=== PATIENT | female | born 1940 | race Caucasian/White ===

== ENCOUNTER → 2024-08-05 09:16 | Outpatient (REF) | payer MEDICARE, BC, SELFPAY ==
[2024-08-05 10:17] LABS: % Eosinophils 3.1 % (0-6); % Immature Granulocytes 0.3 % (0-0.5); % Lymphocytes 24.9 % (20.5-51.1); % Monocytes 6.6 % (1.7-9.3); % Neutrophils 64.1 % (42.2-75.2); Absolute Basophils 0.1 10^3/uL (0-0.2); Absolute Eosinophils 0.2 10^3/uL (0-0.7); Absolute Lymphocytes 1.8 10^3/uL (1.2-3.4); Absolute Monocytes 0.5 10^3/uL (0.1-0.6); Absolute Neutrophils 4.6 10^3/uL (1.4-6.5); Hematocrit 41.6 % (37.0-47.0); Hemoglobin 14.2 g/dL (12.0-16.0); Mean Corp Hgb Conc. 34.1 g/dL (33.0-37.0); Mean Corpuscular Hgb 30.9 pg (27.0-31.0); Mean Corpuscular Volume 90.6 fL (81.0-99.0); Mean Platelet Volume 8.9 fL (7.4-10.4); Nucleated Red Blood Cells % 0 %; Platelet Count 310 10^3/uL (130-400); Red Blood Cell Count 4.59 10^6/uL (4.20-5.40); Red Cell Dist. Width 13.5 % (11.5-14.5); White Blood Cell Count 7.1 10^3/uL (4.8-10.8)
[2024-08-05 10:35] LABS: Urine Albumin Negative (Neg - Trace); Urine Bilirubin Negative (Negative); Urine Character Clear (Clear); Urine Color Yellow; Urine Glucose Negative (Negative); Urine Ketone Negative (Negative); Urine Leukocyte Negative (Negative); Urine Nitrite Negative (Negative); Urine Occult Blood 1+ (Negative); Urine Urobilinogen Negative (Neg - 1+)
[2024-08-05 11:19] LABS: Vitamin D, 25-OH*** 24.7 ng/mL (30-80)
[2024-08-05 11:21] LABS: Urine Squamous Cell >30 /LPF (Few)
[2024-08-05 11:22] LABS: Urine Bacteria Few (Negative); Urine Red Blood Cell None Seen /HPF (0-2)
[2024-08-05 12:14] LABS: ALT (SGPT) 19 U/L (0-35); AST (SGOT) 30 U/L (14-36); Albumin 4.9 g/dl (3.5-5.0); Alkaline Phosphatase 95 U/L (38-126); Blood Urea Nitrogen 17 mg/dl (7-17); Calcium 9.8 mg/dl (8.4-10.2); Carbon Dioxide 23 mmol/L (22-30); Chloride 102 mmol/L (98-107); Glucose 101 mg/dl (70-99); Potassium 4.7 mmol/L (3.5-5.1); Sodium 137 mmol/L (135-145); Total Bilirubin 0.7 mg/dl (0.2-1.3); Total Cholesterol 246 mg/dl (50-199); Total Protein 7.5 g/dl (6.3-8.2); Triglyceride 110 mg/dl (10-149); Very Low Density Lipoprotein 22 mg/dl (0-30); eGFR > 60.00
[2024-08-05 13:32] LABS: HDL Cholesterol 131 mg/dl; LDL Cholesterol, Calculated 93 mg/dl
== END ==
LOC: REG 09:16
PROVIDERS: ATTENDING PHYSICIAN Internal Medicine Geriatric Medicine
DX: Z00.00 Encounter for general adult medical examination without abnormal findings (principal); I10 Essential (primary) hypertension; E78.2 Mixed hyperlipidemia; E78.00 Pure hypercholesterolemia, unspecified; R00.1 Bradycardia, unspecified; Z79.899 Other long term (current) drug therapy
CPT/HCPCS: 36415; 80053; 80061; 81003; 81015; 82306; 85025

== ENCOUNTER 2024-09-13 23:37 | Observation (INO) | payer MEDICARE, BC, SELFPAY ==
[2024-09-13 19:35] VITALS: BP 160/98
--- NOTE | 2024-09-13 19:42 | ED.CVA ---
History of Present Illness
General
Chief Complaint: CVA/TIA Symptoms
Source: patient
Time Seen by Provider: 09/13/24 19:26
Onset of Stroke Symptoms
Onset of symptoms known: Yes
Date of onset of symptoms: 09/11/24
Time of onset of symptoms: 08:00
History of Present Illness
History of Present Illness:
84-year-old female presents to the emergency room for evaluation of slurred speech. Patient states that she began having slurred speech 2 days ago. She noted when she woke up from sleep. She denies any other areas of focal weakness numbness or
tingling. She has been ambulating normally. She does not need the help of a walker or cane. She has been doing her normal activities of daily living. 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 Patient denies any headache. Patient has a
history of ocular migraines which cause her to have visual field deficit and headache. She had 1 of these about a week ago but symptoms completely resolved. Initially the patient thought her slurred speech might be due to her bridge however there
has been no change in her bridge between when she was speaking normally when she developed a slurred speech
Past History
Past History
ED Past Medical History: CAD, HTN and Hypercholesterolemia
ED Past Surgical History: Gynecological and Other (Rectocele/, partial hysterectomy, Mohs surgery, cataracts)
Social History
Tobacco: Former smoker
Alcohol: None
Drug: None
Living: with family
Employment: Retired
Family History
Family History: Hypertension
Phy Exam
Physical Exam
Physical Exam:
General: Awake, Alert, Oriented X3. No acute distress.
Vitals: Moderate hypertension
Head: Atraumatic
Eyes: Pupils equal, EOMI
Throat: Airway intact, no exudates
Neck: Trachea midline
Lungs: Clear and equal b/l
Heart: Regular rate, no murmurs
Abd: Soft, Nontender, No pulsatile mass
Neuro: Mildly slurred speech, no aphasia, muscle strength equal bilaterally, sensation intact cerebellar exam normal
Skin: Warm, dry, no rash
Extremities: pulses equal b/l, no edema
Course
Orders/Labs/Results
Orders:
Orders
09/13/24 19:07
EKG [Electrocardiogram (*1)] Urgent
Reason for Study: Tachycardia
EKG- Treatment ONCE
09/13/24 19:41
CT Head W/o Iv Contrast Urgent
Comment:
Reason For Exam: dysarthria
Cardiac Monitoring- Treatment ONCE
09/13/24 20:02
Alcohol Urgent
Basic Metabolic Panel Urgent
Complete Blood Count/With Diff Urgent
09/13/24 22:18
Aspirin Chewable [Low Strength Aspirin] 324 mg PO NOW STA
Abnormal Lab Results
09/13/24
20:02
Glucose 131 H mg/dl
(70-99)
09/13/24 20:02
09/13/24 20:02
Vital Signs
Initial and Last Documented VS:
Initial Vital Signs
Temp Pulse Resp Pulse Ox
98.7 F 153 17 98
09/13/24 19:07 09/13/24 19:07 09/13/24 19:07 09/13/24 19:07
Last Documented Vital Signs
Temp Pulse Resp BP Pulse Ox
98.7 F 85 20 167/92 94
09/13/24 19:07 09/13/24 20:45 09/13/24 20:45 09/13/24 20:00 09/13/24 20:45
MDM/Problems Addressed
Differential Diagnosis Includes:
CVA, mass, electrolyte abnormality such as hyponatremia, intoxication
MDM/Problems Addressed:
Patient presents with slurred speech. I do not find any other significant neurologic findings. However her speech is quite slurred. Suspect CVA. CT does not show anything acute at this time. Labs are all pretty unremarkable. Recommend
hospitalization for further evaluation and MRI to confirm stroke and if present for other stroke workup.
*Radiology
Radiology exam reviewed: radiology read reviewed
*Pulse Oximetry
Patient hypoxic: no
*EKG
Interpreted by ED Provider?: Yes
Heart Rate: 94
Rate: normal
Rhythm: sinus
[place]: normal axis
Interval: first degree heart block
QRS Pattern: left vent hypertrophy
Ischemia: no ischemia
*Water Filterer Interpretation
Rate: normal
Interpretation: normal
Rhythm: sinus
*Critical Care Note
Total Time (30-74mins, 75-104mins- exclusive of procedures): Not Applicable
ED Attending Note
-
Portions of this chart may have been created with voice recognition software.� Occasional wrong word or��sound alike� substitutions may have occurred due to the inherent limitations of voice recognition software.
Discharge Plan
Departure
Patient Disposition: Admit
Date of Disposition: 09/13/24
Time of Disposition: 22:19
Admit to: Telemetry
Presentation/result/management discussed w/ accepting MD/DO: Hospitalist
Condition: Fair
Discharge Problem:
Slurred speech, Acute CVA (cerebrovascular accident)
Prescriptions:
No Action
coenzyme Q10 100 MG capsule
100 mg PO DAILY
rosuvastatin 5 MG tablet
5 mg PO QPM
cholecalciferol (vitamin D3) 1,000 UNITS tablet
1,000 units PO DAILY
amlodipine 10 MG tablet
10 mg PO DAILY Qty: 30 1RF
valsartan 80 MG tablet
320 mg PO QPM Qty: 120 0RF
Referrals:
Dong Flood MD [Family Provider] -
Interventions
Interventions:
*Risk Screen - Suicide Last Done: 09/13/24 20:28
*General Assessment Last Done: 09/13/24 19:07
*Neglect/Abuse Screening Last Done: 09/13/24 19:07
*ED- Fall Risk Assessment Last Done: 09/13/24 20:28
*ED COVID-19 Vaccine History Last Done: 09/13/24 20:28
ED- Pulmonary Assessment Last Done: 09/13/24 20:28
ED- Neurological Assessment Last Done: 09/13/24 20:28
ED- Cardiac Assessment Last Done: 09/13/24 20:28
Discharge Date and Time
Print Language: BELARUSIAN
[2024-09-13 20:00] VITALS: BP 167/92
[2024-09-13 20:09] LABS: % Basophils 1.5 % (0-2); % Eosinophils 1.5 % (0-6); % Immature Granulocytes 0.4 % (0-0.5); % Lymphocytes 26.8 % (20.5-51.1); % Monocytes 7.8 % (1.7-9.3); Absolute Basophils 0.1 10^3/uL (0-0.2); Absolute Eosinophils 0.1 10^3/uL (0-0.7); Absolute Monocytes 0.6 10^3/uL (0.1-0.6); Absolute Neutrophils 4.6 10^3/uL (1.4-6.5); Hematocrit 40.8 % (37.0-47.0); Hemoglobin 13.8 g/dL (12.0-16.0); Mean Corp Hgb Conc. 33.8 g/dL (33.0-37.0); Mean Corpuscular Hgb 30.6 pg (27.0-31.0); Mean Corpuscular Volume 90.5 fL (81.0-99.0); Mean Platelet Volume 8.7 fL (7.4-10.4); Nucleated Red Blood Cells % 0 %; Platelet Count 299 10^3/uL (130-400); Red Blood Cell Count 4.51 10^6/uL (4.20-5.40); Red Cell Dist. Width 13.5 % (11.5-14.5); White Blood Cell Count 7.4 10^3/uL (4.8-10.8)
[2024-09-13 20:28] VITALS: BMI 28.8
[2024-09-13 20:30] LABS: Blood Urea Nitrogen 17 mg/dl (7-17); Calcium 9.6 mg/dl (8.4-10.2); Carbon Dioxide 24 mmol/L (22-30); Chloride 107 mmol/L (98-107); Glucose 131 mg/dl (70-99); Potassium 3.7 mmol/L (3.5-5.1); Sodium 139 mmol/L (135-145); eGFR > 60.00
[2024-09-13 20:33] LABS: Alcohol None Detected
--- NOTE | 2024-09-13 22:51 | HPS.HSE ---
Family Physician
-
Family Physician: Dong Flood
Chief Complaint
-
Slurred speech
History of Present Illness
This is a 84-year-old female with past medical history significant for hypertension, hyperlipidemia, 4 degree AV block, prior carotid artery disease without any intervention will presents to the emergency department with 2 days of slurred speech.
Patient reports sudden onset of slurred speech. She stated that she initially thought that this was due to the breach that she had on her feet. However when she spoke to family on the phone they could not understand that clearly. Spouse was also
having some difficulty hearing and understanding. She said that she also felt like it was not due to or bridge anymore due to the persistent lack of understanding by others and she felt that her speech was not perfectly normal. Having not had a
prior to this her speech was clear and understandable to me without any significant evidence of slurring. She denies any other symptoms. She denies any observed facial asymmetry. She denies any numbness or tingling. She denies any blurry vision
or double vision or acute vision loss. Patient denies any prior history of CVA. She does report history of ocular migraines with last episode about 1 week ago.
She stated that in the past she was on aspirin but she discontinued because she had no prior risk factors.
In the emergency department she was afebrile, blood pressure was 167/90 with a pulse of 85 and she was satting 94% on room air.
CBC was unremarkable electrolytes BUN/creatinine were normal.
CT of the head was negative. CBC was unremarkable. Electrolytes BUN and creatinine were normal.
Medical History
Past Medical History
Past Medical History: Reports Arrhythmia (History of SVT, first degree AV block), CAD, HTN and Hypercholesterolemia
Past Surgical History: Reports Gynocological (Hysterectomy) and Tonsilectomy
Social History
Tobacco: Non-smoker
Alcohol: None
Drug: None
Personal:
Living: With Family
Family History
Family History: Not pertinent
Allergies / Home Medications
Allergies reflects when Allergies were last updated in [employer].
Home Medications with original date entered in [employer]
Allergy/Medication List:
Allergies
Allergy/AdvReac Type Severity Reaction Status Date / Time
azithromycin Allergy diarrhea Verified 09/07/21 18:57
[From Zithromax Z-Janak]
erythromycin base Allergy diarrhea Verified 09/07/21 18:57
Home Medications
coenzyme Q10 100 mg capsule 100 mg PO DAILY Stroke 03/27/12
rosuvastatin 5 mg tablet 5 mg PO QPM High cholesterol 03/27/12
cholecalciferol (vitamin D3) 25 mcg (1,000 unit) tablet 1,000 units PO DAILY Supplement 02/25/21
amlodipine 2.5 mg tablet 2.5 mg PO DAILY #30 tabs 02/26/21
valsartan 80 mg tablet 320 mg (4 x 80 mg) PO QPM #120 tabs 02/26/21
Review of Systems
-
History Source: Patient
Constitutional: Reports No Symptoms
EENT: Reports No Symptoms
Respiratory: Reports No Symptoms
Cardiac: Reports No Symptoms
Abdomen/GI: Reports No Symptoms
: Reports No Symptoms
Musculoskeletal: Reports No Symptoms
Skin: Reports No Symptoms
Neurological: Reports Other (slurred speech)
Endocrine: Reports No Symptoms
Hematologic/Lymphatic: Reports No Symptoms
Psych: Reports No Symptoms
Physical Exam
Vital Signs
Vital Signs
Temp Pulse Resp BP Pulse Ox
98.7 F 85 20 167/92 94
09/13/24 19:07 09/13/24 20:45 09/13/24 20:45 09/13/24 20:00 09/13/24 20:45
Physical Exam
General: Well Developed, Well Nourished and No Apparent Distress
HEENT: NormoCephalic, Moist mucous membranes and Atraumatic
Respiratory: Clear
Cardiac: S1/S2 and Regular Rhythm; No Murmur or Rub
GI: Soft, Non Tender, Non Distended and Normal Bowel Sounds; No Organomegaly
Rectal: Deferred by Provider
Musculoskeletal: No Clubbing, No Cyanosis and No Edema
Skin: No Rash
Neuro: AO x 3 and Nonfocal/grossly intact
Laboratory Results
-
09/13/24 20:02
09/13/24 20:02
Data Reviewed
-
CT Scan: Report Reviewed by me
Lab Data: Labs Reviewed by me
Old Records: Reviewed
Impression/Plan
-
IMPRESSION:
This is a very pleasant 84-year-old female with history of hypertension who presents emergency department with 2 days of slurred speech. Very subtle deficit on my examination. Patient does feel that her speech is not normal. She has not no other
focal deficits. NIHSS currently equals 0. History of carotid artery disease in the past. CT of the head is negative.
PLAN:
CVA/TIA vs mechanical speech impediment
- admit to telemetry observation
- speech/swallow evaluation
- check lipid panel, a1c and esr
- start aspirin now, continue statin
- continue bp meds
- mri in am, carotid u/s
- dvt ppx with scd
- neuro consult
Code status - DNR
[2024-09-13] MEDS: LOW STRENGTH ASPIRIN 324 MG PO (23:18)
[2024-09-14] VITALS (8 sets, daily range): BP systolic 123–175; BP diastolic 70–89; BMI 27.6
[2024-09-14] MEDS: TYLENOL 650 MG PO (00:45)
--- NOTE | 2024-09-14 01:17 | PTCARENOTE ---
Patient received from ED via stretcher. She ambulated Independently to room. She was oriented to room and surroundings. NIH 1 for mild dysarthria HRR, NSR with first degree AV Block on tele, BS CTA b/l. +void in bathroom. C/o posterior
headache 2/10 Tylenol per prn order. See nursing assessment for further physical findings.
[2024-09-14 06:30] LABS: HDL Cholesterol 100 mg/dl; LDL Cholesterol, Calculated 74 mg/dl; Total Cholesterol 189 mg/dl (50-199); Triglyceride 78 mg/dl (10-149); Very Low Density Lipoprotein 15 mg/dl (0-30)
[2024-09-14] MEDS: LOW STRENGTH ASPIRIN 81 MG PO (08:35)
[2024-09-14] MEDS: NORVASC 2.5 MG PO (08:35)
[2024-09-14] MEDS: FLUSH (NSS) 1 FLUSH IV (08:35)
[2024-09-14 09:17] LABS: Erythrocyte Sed Rate 11 mm/hour (0-20)
--- NOTE | 2024-09-14 10:35 | PTOTSP ---
Speech Pathology
Clinical Swallow Evaluation
84F with admission for CVA workup presents with a functional oropharyngeal swallow. No overt s/s of aspiration observed this date. Aspiration risk is increased 2/2 dysarthric speech. MRI pending.
Recommend:
1. Continue with regular textures (IDDSI 7), thin liquids (IDDSI 0)
2. Meds as best tolerated
3. Aspiration precautions small bites; single sips; slow rate
4. Speech pathology to follow up re: to re-assess swallowing if MRI is positive; provide tx at the acute care level concerning dysarthria
5. If speech difficulties persist, patient would likely be a good candidate for outpatient speech therapy to treat dysarthria
--- NOTE | 2024-09-14 12:47 | W.PN.HOSP.TC ---
Today's Communication/Plan
-
Follow-up carotid ultrasound, MRI
Neurology consult
Increase statin
Assessment / Plan
Assessment / Plan
Physical Exam
General: Well Developed, Well Nourished and No Apparent Distress
HEENT: NormoCephalic, Moist mucous membranes and Atraumatic
Respiratory: Clear
Cardiac: S1/S2 and Regular Rhythm; No Murmur or Rub
GI: Soft, Non Tender, Non Distended and Normal Bowel Sounds; No Organomegaly
Rectal: Deferred by Provider
Musculoskeletal: No Clubbing, No Cyanosis and No Edema
Skin: No Rash
Neuro: AO x 3 and Nonfocal/grossly intact
This is a very pleasant 84-year-old female with history of hypertension who presents emergency department with 2 days of slurred speech. Very subtle deficit on my examination. Patient does feel that her speech is not normal. She has not no other
focal deficits. NIHSS currently equals 0. History of carotid artery disease in the past. CT of the head is negative.
PLAN:
CVA/TIA vs mechanical speech impediment
- admit to telemetry observation
- speech/swallow evaluation - no obvious aspiration
-LDL 74 - increase statin therapy
- start aspirin now, continue statin
-f/u a1c
- hold bp meds
- f/u mri and carotid u/s
- dvt ppx with scd
- neuro consult
#HTN
-hold antihypertensives for now
# Hyperlipidemia
� Statin
Code status - DNR
Anticipated Discharge: 24 - 48 hours
Subjective/Interval History
-
Date of Service: September 14, 2024
No acute events overnight
Objective Data
-
Vital Signs:
Vital Signs
Temp Pulse Resp BP Pulse Ox
98.2 F 77 18 154/82 98
09/14/24 11:27 09/14/24 11:27 09/14/24 11:27 09/14/24 11:27 09/14/24 11:27
Review of Systems
-
History Source: Patient
All other systems: Not reviewed unless documented
Data Reviewed
-
CT Scan: Report Reviewed by me
Labs: Labs Reviewed by me
--- NOTE | 2024-09-14 15:38 | CON.NEURO ---
Neuro Assessment/Plan
Assessment
brain MRI imgs rev'd, no acute stroke, there is chronic stroke small band L lentiform/internal capsule
carotid u/s from 2018 showing moderate right carotid stenosis 50-69%
patient with mild aphasia, no focal/lateralizing symptoms/deficits
certainly TIA or stroke too small to see is possible; secondary prevention would be asa 81 and increase rosuvastatin 10 mg given advanced age, HDL 100, LDL 74 almost at goal
discussed repeat imaging on her known right carotid stenosis - she would not consider elective intervention on an asymptomatic carotid if the stenosis were now severe so no need for imaging
Plan
asa 81, rosuvastatin 10
d/c home
Consultation
Order
Date of Consultation: 09/14/24
Requesting Provider: Patric Wagner
Reason for Consult: slurred speech
Subjective/Objective
Subjective Data
Date of Service: September 14, 2024
from h&p:
This is a 84-year-old female with past medical history significant for hypertension, hyperlipidemia, 4 degree AV block, prior carotid artery disease without any intervention will presents to the emergency department with 2 days of slurred speech.
Patient reports sudden onset of slurred speech. She stated that she initially thought that this was due to the breach that she had on her feet. However when she spoke to family on the phone they could not understand that clearly. Spouse was also
having some difficulty hearing and understanding. She said that she also felt like it was not due to or bridge anymore due to the persistent lack of understanding by others and she felt that her speech was not perfectly normal. Having not had a
prior to this her speech was clear and understandable to me without any significant evidence of slurring. She denies any other symptoms. She denies any observed facial asymmetry. She denies any numbness or tingling. She denies any blurry vision
or double vision or acute vision loss. Patient denies any prior history of CVA. She does report history of ocular migraines with last episode about 1 week ago.
She stated that in the past she was on aspirin but she discontinued because she had no prior risk factors.
In the emergency department she was afebrile, blood pressure was 167/90 with a pulse of 85 and she was satting 94% on room air.
Seen this afternoon, she is still having some mild slurred speech. she dies facial droop, focal weakness, or numbness
Objective Data
Vital Signs
Temp Pulse Resp BP Pulse Ox
36.8 C 77 18 154/82 98
09/14/24 11:27 09/14/24 11:27 09/14/24 11:27 09/14/24 11:27 09/14/24 11:27
Lab Results
09/13/24 20:02
09/13/24 20:02
Sodium 139 mmol/L (135-145) 09/13/24 20:02
Potassium 3.7 mmol/L (3.5-5.1) 09/13/24 20:02
BUN 17 mg/dl (7-17) 09/13/24 20:02
Glucose 131 mg/dl (70-99) H 09/13/24 20:02
Calcium 9.6 mg/dl (8.4-10.2) 09/13/24 20:02
LDL Cholesterol, Calc 74 mg/dl 09/14/24 05:48
Patient Allergies
azithromycin [From Zithromax Z-Janak] Allergy (Verified 09/07/21 18:57)
diarrhea
erythromycin base Allergy (Verified 09/07/21 18:57)
diarrhea
Physical Exam
-
AAOx3, trace dysarthria, language intact
VFF, EOMI, face symmetric,
full strength b/l UE/LE no drift
sensation intact to touch/pin,
FNF mild dystal dysmetria
Medications
-
Active Medications
Generic Name Dose Route Start Last Admin
Trade Name Freq PRN Reason Stop Dose Admin
Acetaminophen 650 mg 09/14/24 00:07
Acetaminophen 650 Mg Rectal Suppository RECTAL 10/12/24 00:06
Q4HPRN PRN
GRAHAM, mild pain, or temp >100.4F
Acetaminophen 650 mg 09/14/24 00:07 09/14/24 00:45
Acetaminophen 325 Mg Tablet PO 10/12/24 00:06 650 mg
Q4HPRN PRN Administration
GRAHAM, mild pain, or temp >100.4F
Aspirin 81 mg 09/14/24 08:00 09/14/24 08:35
Aspirin 81 Mg Chewable Tablet PO 10/12/24 07:59 81 mg
DAILY DIEGO Administration
Rosuvastatin Calcium 10 mg 09/14/24 18:00
Rosuvastatin (Crestor) 10 Mg Tablet PO 10/12/24 17:59
QPM DIEGO
Sodium Chloride 0 flush 09/14/24 01:00 09/14/24 08:35
Sodium Chloride 0.9% (Flush) Syringe IV 10/12/24 00:59 1 flush
PER PROTOCOL DIEGO Administration
Valsartan 320 mg 09/14/24 18:00
Valsartan 160 Mg Tablet PO 10/12/24 17:59
QPM DIEGO
Home Medications
�Medication �Instructions �Recorded
coenzyme Q10 100 mg capsule 100 mg PO DAILY Stroke 03/27/12
rosuvastatin 5 mg tablet 5 mg PO QPM High cholesterol 03/27/12
cholecalciferol (vitamin D3) 25 1,000 units PO DAILY Supplement 02/25/21
mcg (1,000 unit) tablet
valsartan 80 mg tablet 320 mg (4 x 80 mg) PO QPM #120 tabs 02/26/21
amlodipine 2.5 mg tablet 2.5 mg PO DAILY 09/14/24
[2024-09-14] MEDS: CRESTOR 10 MG PO (17:39)
[2024-09-14] MEDS: DIOVAN 320 MG PO (17:39)
[2024-09-14] MEDS: TUMS CHEWABLE TABLET 200 MG PO (20:12)
[2024-09-15 03:55] VITALS: BP 148/72
[2024-09-15 06:18] LABS: Hematocrit 40.1 % (37.0-47.0); Hemoglobin 13.5 g/dL (12.0-16.0); Mean Corp Hgb Conc. 33.7 g/dL (33.0-37.0); Mean Corpuscular Hgb 30.5 pg (27.0-31.0); Mean Corpuscular Volume 90.7 fL (81.0-99.0); Platelet Count 284 10^3/uL (130-400); Red Blood Cell Count 4.42 10^6/uL (4.20-5.40); Red Cell Dist. Width 13.4 % (11.5-14.5); White Blood Cell Count 6.2 10^3/uL (4.8-10.8)
[2024-09-15 06:53] LABS: ALT (SGPT) 15 U/L (0-35); AST (SGOT) 23 U/L (14-36); Albumin 4.2 g/dl (3.5-5.0); Alkaline Phosphatase 60 U/L (38-126); Blood Urea Nitrogen 19 mg/dl (7-17); Calcium 9.9 mg/dl (8.4-10.2); Carbon Dioxide 28 mmol/L (22-30); Chloride 105 mmol/L (98-107); Estimated Creatinine Clearance 50 ml/min; Glucose 112 mg/dl (70-99); Potassium 4.4 mmol/L (3.5-5.1); Sodium 138 mmol/L (135-145); Total Bilirubin 0.5 mg/dl (0.2-1.3); Total Protein 6.7 g/dl (6.3-8.2); eGFR > 60.00
[2024-09-15 07:12] VITALS: BP 142/86
[2024-09-15] MEDS: FLUSH (NSS) 1 FLUSH IV (08:15)
[2024-09-15] MEDS: LOW STRENGTH ASPIRIN 81 MG PO (08:15)
[2024-09-15 11:27] VITALS: BP 135/83
--- NOTE | 2024-09-15 11:40 | W.PN.HOSP.TC ---
Addendum entered and electronically signed by Patric Wagner MD 09/15/24 13:29:
[id number]
Original Note:
Today's Communication/Plan
-
asa, increase statin
f/u pcp, dentistry and neurology outpatient
Assessment / Plan
Assessment / Plan
Physical Exam
General: Well Developed, Well Nourished and No Apparent Distress
HEENT: NormoCephalic, Moist mucous membranes and Atraumatic; mild aphasia, no focal/lateralizing symptoms/deficits
Respiratory: Clear
Cardiac: S1/S2 and Regular Rhythm; No Murmur or Rub
GI: Soft, Non Tender, Non Distended and Normal Bowel Sounds; No Organomegaly
Rectal: Deferred by Provider
Musculoskeletal: No Clubbing, No Cyanosis and No Edema
Skin: No Rash
Neuro: AO x 3 and Nonfocal/grossly intact
This is a very pleasant 84-year-old female with history of hypertension who presents emergency department with 2 days of slurred speech. Very subtle deficit on my examination. Patient does feel that her speech is not normal. She has not no other
focal deficits. NIHSS currently equals 0. History of carotid artery disease in the past. CT of the head is negative.
PLAN:
CVA/TIA vs mechanical speech impediment ( i believe most likely poor dentition)
- admit to telemetry observation
- speech/swallow evaluation - no obvious aspiration
-LDL 74 - increase statin therapy
- start aspirin now, continue statin
-f/u a1c - 6.0
- f/u mri neg for acute stroke; chronic cva; no need for carotid us, also patient refusing intervention; will follow up outpt
- neuro consult
#HTN
resume home meds
# Hyperlipidemia
� Statin
Code status - DNR
More than 30 minutes spent in discharge including
Final examination of the patient
Summarizing hospital stay
Instructions for continuing care to all relevant caregivers
Preparation of discharge records, prescriptions, and referral forms
Total time spent (in minutes): 36
Anticipated Discharge: Today
Subjective/Interval History
-
Date of Service: September 15, 2024
no change in symptoms
Objective Data
-
Labs:
Laboratory Results
09/15/24
05:46
WBC 6.2
Hgb 13.5
Hct 40.1
Plt Count 284
Sodium 138
Potassium 4.4
Chloride 105
Carbon Dioxide 28
BUN 19 H
Creatinine 0.7
Glucose 112 H
Calcium 9.9
Total Bilirubin 0.5
AST 23
ALT 15
Alkaline Phosphatase 60
Vital Signs:
Vital Signs
Temp Pulse Resp BP Pulse Ox
98 F 81 18 135/83 97
09/15/24 11:27 09/15/24 11:27 09/15/24 11:27 09/15/24 11:27 09/15/24 11:27
I&O
09/14/24 09/15/24 09/16/24
06:59 06:59 06:59
Intake Total 720 / 720 360 / 360
Balance 720 / 720 360 / 360
Review of Systems
-
History Source: Patient
All other systems: Not reviewed unless documented
Data Reviewed
-
CT Scan: Report Reviewed by me
MRI: Report Reviewed by me
Labs: Labs Reviewed by me
--- NOTE | 2024-09-15 11:43 | W.DS.TRANS ---
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
-
Discharge Instructions:
Discharge Diagnosis/Procedures Dysarthria, difficulty speaking
Diet Low Cholesterol,Low Fat
Activity As tolerated
Blood Work cbc and cmp in 1 week with pcp
Other Services ST
Instructions:
Stand-Alone Forms:
Changes to Home Medications: Yes
Discharge Medications:
DC Medications w/original date entered in [employer]
coenzyme Q10 100 mg capsule 100 mg PO DAILY Stroke 03/27/12
cholecalciferol (vitamin D3) 25 mcg (1,000 unit) tablet 1,000 units PO DAILY Supplement 02/25/21
valsartan 80 mg tablet 320 mg (4 x 80 mg) PO QPM #120 tabs 02/26/21
amlodipine 2.5 mg tablet 2.5 mg PO DAILY 09/14/24
aspirin 81 mg chewable tablet 81 mg PO DAILY #30 tabs 09/15/24
rosuvastatin 10 mg tablet 10 mg PO QPM #30 tabs 09/15/24
Home Medication Changes
aspirin 81 mg chewable tablet 81 mg PO DAILY #30 tabs 09/15/24
rosuvastatin 10 mg tablet 10 mg PO QPM #30 tabs 09/15/24
Pending Results: No
--- NOTE | 2024-09-15 16:38 | CM ---
Patient with Dx Dysarthria, difficulty speaking. PT/OT; no needs. ST; recommend outpatient speech therapy.
Met with patient who resides with her in a 1 story house with 2 outside steps.
the patient was independent in ADLs and ambulation.
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
The patient has no DME, prior VN or SNF.
PCP - Dong Flood
Pharmacy - [facility]
Message to Dr Wagner requesting script for outpatient ST.
Plan home with script for outpatient ST.
== END 2024-09-15 14:25 | disposition home or self-care (01) ==
LOC: 4 EAST ACU 23:37
PROVIDERS: ADMITTING PHYSICIAN Internal Medicine; ATTENDING PHYSICIAN Internal Medicine; CONSULT PHYSICIAN Psychiatry & Neurology Clinical Neurophysiology; EMERGENCY PHYSICIAN Emergency Medicine; FAMILY PHYSICIAN Internal Medicine Geriatric Medicine
DX: R47.1 Dysarthria and anarthria (principal); Z87.891 Personal history of nicotine dependence; Z66 Do not resuscitate; Z79.899 Other long term (current) drug therapy; I11.9 Hypertensive heart disease without heart failure; Z86.73 Personal history of transient ischemic attack (TIA), and cerebral infarction without residual deficits
CPT/HCPCS: 70450; 70551; 80048; 80053; 80061; 82077; 83036; 85025; 85027; 85652; 92610; 93005; 97161; 97165; 99285

== ENCOUNTER → 2024-10-03 07:09 | Outpatient (REF) | payer MEDICARE, BC, SELFPAY | LOC: RCS 07:09 | PROVIDERS: ATTENDING PHYSICIAN Internal Medicine Cardiovascular Disease; FAMILY PHYSICIAN Internal Medicine Geriatric Medicine | DX: I10 Essential (primary) hypertension (principal); G45.9 Transient cerebral ischemic attack, unspecified | CPT/HCPCS: 93306 ==

== ENCOUNTER → 2025-01-28 13:57 | Outpatient (REF) | payer MEDICARE, BC, SELFPAY | LOC: HWRAD 13:57 | PROVIDERS: ATTENDING PHYSICIAN Internal Medicine Cardiovascular Disease; FAMILY PHYSICIAN Internal Medicine Geriatric Medicine | DX: I65.21 Occlusion and stenosis of right carotid artery (principal); I10 Essential (primary) hypertension; G45.9 Transient cerebral ischemic attack, unspecified | CPT/HCPCS: 93880 ==

== ENCOUNTER → 2025-01-30 12:37 | Outpatient (REF) | payer MEDICARE, BC, SELFPAY ==
[2025-01-30 14:00] LABS: Hematocrit 42.3 % (37.0-47.0); Hemoglobin 14.1 g/dL (12.0-16.0); Mean Corp Hgb Conc. 33.3 g/dL (33.0-37.0); Mean Corpuscular Volume 91.8 fL (81.0-99.0); Nucleated Red Blood Cells % 0 %; Platelet Count 343 10^3/uL (130-400); Red Cell Dist. Width 13.6 % (11.5-14.5)
[2025-01-30 14:43] LABS: ALT (SGPT) 17 U/L (0-35); AST (SGOT) 27 U/L (14-36); Albumin 4.8 g/dl (3.5-5.0); Alkaline Phosphatase 93 U/L (38-126); Blood Urea Nitrogen 13 mg/dl (7-17); Calcium 10.1 mg/dl (8.4-10.2); Carbon Dioxide 27 mmol/L (22-30); Chloride 102 mmol/L (98-107); Glucose 97 mg/dl (70-99); Potassium 4.7 mmol/L (3.5-5.1); Sodium 135 mmol/L (135-145); Total Protein 7.8 g/dl (6.3-8.2); eGFR > 60.00
== END ==
LOC: REG 12:37
PROVIDERS: ATTENDING PHYSICIAN Internal Medicine Cardiovascular Disease; FAMILY PHYSICIAN Internal Medicine Geriatric Medicine
DX: R00.1 Bradycardia, unspecified (principal); I77.9 Disorder of arteries and arterioles, unspecified; I44.0 Atrioventricular block, first degree; I10 Essential (primary) hypertension; E78.2 Mixed hyperlipidemia
CPT/HCPCS: 36415; 80053; 85025

== ENCOUNTER 2025-02-07 07:57 | Day surgery (SDC) | payer MEDICARE, BC, SELFPAY ==
[2025-02-07] VITALS (17 sets, daily range): BP systolic 109–198; BP diastolic 58–117; BMI 29.5
--- NOTE | 2025-02-07 13:19 | ITS.CL.PACE ---
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
Pacemaker Implant
Procedure Report:
Dual Chamber Pacemaker Placement:
Ms. Antonio is an 84-year-old woman with hx of tachy salud syndrome and severe bradycardia and hx of tachycardia is recommended a pacemaker placement.
Indications: Tachy Salud Syndrome
Date of the Procedure: 02/07/2025
Pre-Operative Diagnosis: Tachy Salud Syndrome
Post-Operative Diagnosis: Tachy Salud Syndrome
Procedure Performed: DUAL CHAMBER PACEMAKER IMPLANTATION
Performing Physician:
Angelica Escamilla MD
Assistants:
EP staff
Anesthesia:
See anesthesia report
Pre-operative antibiotics:
Ancef
Detailed Description of the Procedure:
The patient was identified using hospital identification and informed consent obtained for the procedure. The risks were explained including, but not limited to: Bleeding, infection, arrhythmia, stroke, vascular/cardiac/lung puncture, surgery,
pacemaker dependency/device malfunction. All questions were answered.
The patient was brought to the electrophysiology laboratory in stable condition in fasting state. Continuous electrocardiographic and hemodynamic monitoring was initiated.
The initial rhythm was sinus bradycardia.
A surgical pause and time out was performed immediately prior to the procedure with review of her medical history, recent labs, allergies and medications with site of procedure identified and consent noted in the chart. Antibiotics pre operatively
given. All team members concurred.
The procedure site was meticulously prepared with surgical scrub and allowed to dry with no pooling. Sterile draping was applied to cover the procedure site. The image intensifier was draped with sterile bag and positioned over the patient.
The left infraclavicular region was prepped and draped in the usual sterile fashion. Local anesthesia was administered subcutaneously using 1% lidocaine / Bupivacaine. The left cephalic vein cutdown was performed with an incision at the
delto-pectoral groove, and vascular sheaths were introduced for lead access. These were advanced into the right ventricle and the right atrium.
The right ventricular lead was secured in position with an active fixation technique at the apical septal location.
The RA lead was attached in the right atrial appendage with passive franklyn fixation.
There was excellent sensing, pacing, and impedance from the leads, with no diaphragmatic stimulation at 10 V output.�Bovie cautery, antibiotics, and fluoroscopy were used.
The sheaths were withdrawn, and the thresholds remained acceptable. The leads were secured in position at the venous entry site with 2-0 Ethibond. A pocket was fashioned contiguous to the incision. The electrode terminals were connected to the pulse
generator, which was placed into the pocket. The wound was irrigated thoroughly with antibiotic solution.
The device was anchored to the underlying fascia using 2-0 Ethibond suture.
The wound was closed in 3 layers using 2-0 V loc then two layers of 4-0 Biosyn sutures to the dermis. Steri-strips were applied externally and covered with Aquacel bandage.
Procedure End:
The procedure was tolerated well.
Estimated Blood loss:
5 cc
Specimens Removed:
No cultures and no specimens were obtained. No intraoperative pathology was identified.
Fluoro time:
2.1 min / 4.56mGy
Urine output:
None
Packs / Drains/ Tubes:
None
Instrument / Sponge Count Correct:
Yes
Complications of the Procedure:
None
Condition of Patient at Time of Transfer:
Hemodynamically stable with no neurological or vascular compromise.
Device information:�
Generator: Karma; Model: W1DR01; Serial # [id number]�
Atrial Lead:
MedAccuri Cytometers; Model: 4574-45; Serial # [id number]�
Measured data in the right atrium was sensing of 1.5 mV, impedance of 730 ohms and threshold of 0.5 V at 0.4ms.
RV Lead:
Medtronic; Model: 5076-52; Serial # [id number]
Measured data in the RV lead was sensing of 6 mV, impedance of 780ohms and threshold of 2.0 V at 0.4ms�
Salud parameter settings were AAIR < = > DDDR 60-130 bpm. �
Mode Switch: On � Mode switched to VVIR
Paced AV interval: 180ms
Sensed AV interval: 150 ms.
Rate Adaptive A-V Interval: Off
Output parameters:
Amplitude (V) Pulse Width (ms) Sensitivity (mV)
RA: 3.5 0.4 0.3
RV: 3.5 0.4 0.9
Summary:
Successful implantation of MRI compatible dual chamber Medtronic pacemaker
Results/Recommendations:
-Please follow up CXR�
1. Please provide patient with adequate pain control�
Instructions to be given to patient:�
- Please follow up with [facility] at [address] [place] [address] ([phone]) to get your wound checked within 14 days of your discharge.
- Do not wet incision site until after it is evaluated at cardiology clinic. No soaking or bath until then. Showers or Sponge baths are OK.�Dab dry the area after a shower.
- Do not lift left elbow above shoulder, particularly with sudden jerking movements, for 1 month�
- Do not lift anything weighing more than 10 pounds with the left arm for 1 month�
- If you notice any fevers, shortness of breath, lightheadedness, chest pain, or worsening swelling in the wound site, please contact the arrhythmia clinic, contact your divisional storekeeper, or present to the hospital for evaluation.�
Angelica Escamilla MD
Electrophysiology
--- NOTE | 2025-02-07 14:04 | W.PN.UPDATE ---
Addendum entered and electronically signed by NAHUM Nixon 02/07/25 15:53:
s/w pt her has dementia and prefers to stay overnight and be monitored as she is nervous to go home. We will admit for overnight observation, with plans to d/c home in the morning.
Original Note:
Update Note
Progress Note Update
84 yo WF s/p PPM (same day). She denies cp, sob, inc pain, EKG Atrial paced, CXR no PTX, leads in good position. Activity restrictions reviewed. She will have incision check in 1 week. She will have one more dose of antibiotics prior to d/c. She is
for d/c home after 4p.
[2025-02-07] MEDS: TYLENOL 650 MG PO (15:34)
[2025-02-07] MEDS: ANCEF 5 IV ×3 (15:52→23:17)
--- NOTE | 2025-02-07 16:44 | CM ---
Reviewed chart. Met with Mrs. Antonio and her son to review discharge plans. She states she resides with her spouse in a one stroy home with two steps to steps to enter. 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 She has [facility] that comes in 2 hour in the day and 2 hours in the evening to assist with care. [facility] come in on to assist with bathing him. They are coming in as needed while she recovers. Her son states he will spend the night with them
when she foes home. She states she does not have any DME in the home. She states she has a prescription plan and uses [facility]. The discharge plan is to return home with her spouse, son support and [facility] [place] as needed when medically stable.
--- NOTE | 2025-02-07 18:56 | PTCARENOTE ---
received pt post PPM. Left chest wall CDI. Pt denies pain at this time. Pt oriented to unit. pt educated on plan of care and pt verbalized understanding. call betts within reach.
[2025-02-07] MEDS: CRESTOR 10 MG PO (20:01)
[2025-02-07] MEDS: TUMS CHEWABLE TABLET 200 MG PO (21:03)
[2025-02-08 04:18] VITALS: BP 151/82
[2025-02-08 04:40] VITALS: BMI 29.2
[2025-02-08 05:00] LABS: Hematocrit 38.6 % (37.0-47.0); Hemoglobin 13.2 g/dL (12.0-16.0); Mean Corp Hgb Conc. 34.2 g/dL (33.0-37.0); Mean Corpuscular Volume 90.2 fL (81.0-99.0); Platelet Count 298 10^3/uL (130-400); Red Cell Dist. Width 13.4 % (11.5-14.5)
--- NOTE | 2025-02-08 05:07 | PTCARENOTE ---
Pt with HR in 130-140 BPM narrow complex when walking in the room. Pt denies palpitations, lightheadedness or any other discomfort. Pt instructed to go back to bed. Shortly after HR decreased to 80sBPM, NSR with bigeminies. EKG done. Later this
shift pt had two more short episodes when here HR was in 120-130 BPM when she was at rest. Pt asymptomatic.
[2025-02-08 05:24] LABS: Blood Urea Nitrogen 15 mg/dl (7-17); Calcium 9.6 mg/dl (8.4-10.2); Carbon Dioxide 22 mmol/L (22-30); Chloride 105 mmol/L (98-107); Estimated Creatinine Clearance 58 ml/min; Glucose 126 mg/dl (70-99); Magnesium 2.2 mg/dl (1.6-2.3); Potassium 4.5 mmol/L (3.5-5.1); Sodium 134 mmol/L (135-145); eGFR > 60.00
[2025-02-08 06:00] VITALS: BMI 29.2
[2025-02-08 07:18] VITALS: BP 166/100
[2025-02-08 07:20] VITALS: BP 177/95
[2025-02-08] MEDS: ANCEF 5 IV (08:00)
[2025-02-08] MEDS: DIOVAN 320 MG PO (08:00)
[2025-02-08] MEDS: NORVASC 2.5 MG PO (08:00)
--- NOTE | 2025-02-08 08:19 | W.PN.CD ---
Addendum entered and electronically signed by Moisés Hendricks MD 02/08/25 08:51:
I saw and examined the patient independently and performed majority of MDM.
The MICRO PALEONTOLOGIST's note was reviewed and I agree with the note.
Comment: 84 yo female with tachy/salud syndrome admitted following dual chamber PPM implant. No cardiac complaints. Exam with tachy, regular rhythm, no murmurs, no edema. Tele: SVT 140-150.
s/p PPM. No complications.
SVT, rapid. Give 5mg IV lopressor now, and start ToproL XL 50mg daily. Assess rhythm and discharge plans later today.
Addendum entered and electronically signed by NAHUM Ray 02/08/25 08:43:
Patient with SVT this AM, only minimally symptomatic. Did not respond to vagal maneuvers. Has not yet received PO metoprolol. Will give dose of IV metoprolol now, as well as PO- reassess later this AM for possible d/c.
Original Note:
Today's Communication / Plan
-
Home today with follow-up in our office arranged
Metoprolol added
Impression / Plan
-
84 y/o female with tachy-salud syndrome is now s/p Medtronic dual chamber pacemaker with Dr. Escamilla 02/07/25:
Tachy-salud syndrome:
- s/p Medtronic dual chamber pacemaker with Dr. Escamilla 02/07/25. Site looks good no hematoma. Incision check in office arranged. We reviewed activity restrictions and site care.
-for her SVT (minimally symptomatic), PVC's (asymptomatic), metoprolol has been added
HTN:
-elevated this AM prior to meds
-continue meds and monitor as OP with addition of metoprolol
Physical Exam
Vital Signs/Labs
Vital Signs
Temp Pulse Resp BP Pulse Ox
97.7 F 77 20 142/72 93
02/08/25 07:17 02/08/25 02:15 02/08/25 07:17 02/07/25 23:10 02/08/25 07:17
02/07/25 02/08/25 02/09/25
06:59 06:59 06:59
Actual Weight 68.4 kg 67.9 kg
02/08/25 04:20
02/08/25 04:20
Magnesium 2.2 mg/dl (1.6-2.3) 02/08/25 04:20
Physical Exam
Constitutional: No acute distress
EENT: Anicteric
Cardiovascular: Rhythm & rate is regular and Pedal edema is absent
Respiratory: Respiratory effort normal and Lungs clear to auscul.
Neuro/Psych: AO x 3
Other: Cardiac Device Site (aquacell in place- no hematoma)
Data Reviewed
-
Date of Service: February 08, 2025
EKG: Tracing Personally Visualized and interpreted (SR with 1st degree AVB 84 BPM) and Other (periods of SVT )
Labs: Labs Reviewed by me
[2025-02-08] MEDS: LOPRESSOR 5 MG IV (08:40)
[2025-02-08] MEDS: TOPROL XL 50 MG PO (09:46)
[2025-02-08 11:02] VITALS: BP 160/110
[2025-02-08 11:03] VITALS: BP 163/87
[2025-02-08 11:10] VITALS: BP 161/88
--- NOTE | 2025-02-08 11:48 | W.DS.TRANS ---
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
-
Discharge Instructions:
Discharge Diagnosis/Procedures Pacemaker implant, SVT
Diet Low Cholesterol,2 Gram Sodium
Activity Other activity
Additional Activity please follow activity restrictions as
recommended on attached form
Driving Restrictions No driving for 1 week
Bathing Restrictions OK to Shower
Instructions:
Stand-Alone Forms: DC Inst - Implanted Device
Changes to Home Medications: Yes
Discharge Medications:
DC Medications w/original date entered in [employer]
coenzyme Q10 100 mg capsule 100 mg PO DAILY Stroke 03/27/12
cholecalciferol (vitamin D3) 25 mcg (1,000 unit) tablet 1,000 units PO DAILY Supplement 02/25/21
valsartan 80 mg tablet 320 mg (4 x 80 mg) PO QPM #120 tabs 02/26/21
amlodipine 2.5 mg tablet 2.5 mg PO DAILY 09/14/24
rosuvastatin 10 mg tablet 10 mg PO QPM #30 tabs 09/15/24
metoprolol succinate 50 mg tablet,extended release 24 hr (Toprol XL) 50 mg PO DAILY #90 tabs 02/07/25
Home Medication Changes
metoprolol added
Pending Results: No
== END 2025-02-08 15:21 | disposition home or self-care (01) ==
LOC: CATH 07:57
PROVIDERS: Nurse Practitioner Adult Health; ATTENDING PHYSICIAN Internal Medicine Cardiovascular Disease; FAMILY PHYSICIAN Internal Medicine Geriatric Medicine; OTHER PHYSICIAN Internal Medicine Cardiovascular Disease
DX: I49.5 Sick sinus syndrome (principal); E78.5 Hyperlipidemia, unspecified; I10 Essential (primary) hypertension; I44.0 Atrioventricular block, first degree; I47.10 Supraventricular tachycardia, unspecified; I49.3 Ventricular premature depolarization; Z86.73 Personal history of transient ischemic attack (TIA), and cerebral infarction without residual deficits; I65.21 Occlusion and stenosis of right carotid artery; K21.9 Gastro-esophageal reflux disease without esophagitis; Z79.899 Other long term (current) drug therapy
CPT/HCPCS: 33208; 71045; 80048; 83735; 85027; 93005; C1785; C1898